=== PATIENT | female | born 1985 | race Caucasian/White ===

== ENCOUNTER 2016-05-11 10:54 | Emergency (ER) | payer OTHER ==
[2016-05-11 13:25] VITALS: BP 106/58
--- NOTE | 2016-05-11 13:44 | UC ---
Throat Pain/Nasal Olegario HPI - HPI Summary HPI Summary: complaint of sore throat for 3 days stomach feels upset slight nasal congestion fever for 2 days 103 highest temp taking ibuprofen and tylenol denies cough - History of Current Complaint Chief Complaint: UCGeneralIllness Stated Complaint: THROAT,EARS Time Seen by Provider: 05/11/16 13:20 Hx Obtained From: Patient Hx Last Menstrual Period: s/p ablation - Allergies/Home Medications Allergies/Adverse Reactions: Allergies Allergy/AdvReac Type Severity Reaction Status Date / Time Levofloxacin [From Levaquin] Allergy Severe throat Verified 05/11/16 13:19 swelling/hives/vomiting Erythromycin Allergy Intermediate vomiting/ra Verified 05/11/16 13:19 sh Onion Allergy Anaphylatic Verified 05/11/16 13:19 Shock Prochlorperazine Allergy Hives Verified 05/11/16 13:19 [From Compazine] Ketorolac Tromethamine AdvReac See Comment Verified 05/11/16 13:19 [From Toradol] Home Medications: Home Medications Albuterol HFA INHALER* [Ventolin HFA Inhaler*] 1 - 2 puff INH Q4H PRN 05/11/16 [ History Confirmed 05/11/16] Ibuprofen TAB* [Advil TAB*] 800 mg PO Q8H PRN 05/11/16 [History Confirmed ] Topiramate TAB(*) [Topamax 100 MG(*)] 100 mg PO BEDTIME 05/11/16 [History Confirmed 05/11/16] PMH/Surg Hx/FS Hx/Imm Hx Previously Healthy: Yes Endocrine History Of: Denies: Diabetes, Thyroid Disease, Hyperthyroidism, Hypothyroidism, Dyslipidemia Cardiovascular History Of: Denies: Cardiac Disorders, Hypertension, Pacemaker/ICD, Myocardial Infarction , Congestive Heart Failure, Atrial Fibrillation, Deep Vein Thrombosis, Bleeding Disorders Respiratory History Of: Reports: Asthma Denies: COPD, Bronchitis, Pneumonia, Pulmonary Embolism GI/ History Of: Denies: Gastroesophageal Reflux, Ulcer, Gastrointestinal Bleed, Gall Bladder Disease, Kidney Stones, Diverticulitis, Renal Disease, Urosepsis Neurological History Of: Reports: Migraine Denies: TIA, CVA, Dementia, Seizures Psychological History Of: Denies: Anxiety, Depression, Bipolar Disorder, Schizophrenia, Post Traumatic Stress Disorder Cancer History Of: Reports: Cervical Cancer - Treated for this 2013. She sees her GERIATRIC CASE MANAGER regularly. She had cone biopsy Denies: Lung Cancer, Colorectal Cancer, Breast Cancer, Prostate Cancer Other History Of: Negative For: HIV, Hepatitis B, Hepatitis C - Surgical History Surgical History: Yes Surgery Procedure, Year, and Place: Uterine Ablation, 2013; Tubal Ligation, 2013 ; , 2007 - Family History Known Family History: Positive: Cardiac Disease, Hypertension, Diabetes - Social History Occupation: Disabled Lives: With Family Alcohol Use: Rare Substance Use Type: None Smoking Status (MU): Former Smoker When Did the Patient Quit Smoking/Using Tobacco: 2012 - Immunization History Most Recent Influenza Vaccination: Not the Season Most Recent Tetanus Shot: 10/30/14 Review of Systems Constitutional: Fever Skin: Negative Eyes: Negative ENT: Sore Throat, Nasal Discharge Respiratory: Negative Cardiovascular: Negative Gastrointestinal: Negative Genitourinary: Negative Motor: Negative Neurovascular: Negative Musculoskeletal: Negative Neurological: Negative Psychological: Negative All Other Systems Reviewed And Are Negative: Yes Physical Exam Triage Information Reviewed: Yes Appearance: No Pain Distress, Well-Nourished Vital Signs: Initial Vital Signs Temp 98.2 F 05/11/16 13:15 Pulse 80 05/11/16 13:15 Resp 16 05/11/16 13:15 BP 106/58 05/11/16 13:15 Pulse Ox 100 05/11/16 13:15 Vital Signs Reviewed: Yes Eyes: Positive: Conjunctiva Clear ENT: Positive: Pharyngeal erythema, Nasal congestion, TMs normal, Tonsillar swelling. Negative: Tonsillar exudate Neck: Positive: No Lymphadenopathy Respiratory: Positive: Lungs clear, Normal breath sounds Cardiovascular: Positive: RRR, No Murmur, Pulses Normal Abdomen Description: Positive: Nontender, Soft Bowel Sounds: Positive: Present Musculoskeletal: Positive: No Edema Neurological: Positive: Alert Psychological Exam: Normal Skin Exam: Normal Throat Pain/Nasal Course/Dx - Differential Dx/Diagnosis Differential Diagnosis/HQI/PQRI: Pharyngitis, Tonsillitis Provider Diagnoses: viral pharyngitis Discharge - Discharge Plan Condition: Stable Disposition: HOME Patient Education Materials: Pharyngitis (ED) Referrals: GAYLA Correia [Primary Care Provider] - Additional Instructions: PHARYNGITIS (Sore Throat) What is Pharyngitis? The medical name for a sore throat is Pharyngitis. It is caused by an infection or irritation of your throat or tonsils. The infection can be caused by a virus or by bacteria. Not everyone with Pharyngitis needs antibiotics. Antibiotics will not make viral infections better, and they will not help a sore throat caused by irritation. Symptoms May Include: Sore throat Swelling of the glands in the neck Trouble or pain with swallowing Fever Headache Cough Extreme tiredness Ear pain Treatment Recommendations: Gargle every few hours with a solution of 1/4 teaspoon of salt dissolved in 1/ 2 cup of warm water. Drink plenty of warm beverages, like tea with lemon, (with or without honey) and soup. You may eat and drink cold foods and liquids like frozen yogurt, popsicles, and ice water if that makes your throat feel better. The goal is to keep you well hydrated. Use a "cool-mist" vaporizer or humidifier in the room where you spend most of your time. If you get a sore throat often, consider adding an electronic air filter and humidifier to your furnace system. Don't smoke. Do not eat spicy foods. Take medicine exactly as prescribed. If you do not think it is helping, call your healthcare provider. Do not increase how much or how often you take it without getting their OK first. Non-prescription anti-inflammatory medicine like ibuprofen (Motrin, Advil) or naproxen (Aleve) may help lessen the pain. You should not take these medicines if you have had bleeding in your stomach in the past. Acetaminophen ( Tylenol) is another choice of medicine that may help the pain. If pain medicine that makes you tired or sleepy or contains narcotics is prescribed, you should not drink, drive, or participate in any other activities that you need to be clear-headed for. Please keep all medicines out of the reach of children. Do not get in close contact with anyone you know who has a sore throat. Use throat lozenges (Cepostat, [place], etc.) or suck on hard candy for temporary relief of the pain with swallowing. (Do not give to children under age 5.) Call Your Doctor or Return Here IF: Your symptoms do not start to get better within 2 days or you become worse. You have a fever over 101.0 F orally. You cant swallow liquids or saliva. You are drooling. You start to have trouble breathing. You start to have a rash. You start to have a stiff neck. You start to have pain in your chest. You start to have any symptoms that are new or worry you.
== END 2016-05-11 14:07 | disposition home or self-care (01) ==
LOC: UCCORT 10:54
DX: J02.8 Acute pharyngitis due to other specified organisms (principal); B97.89 Other viral agents as the cause of diseases classified elsewhere; Z87.891 Personal history of nicotine dependence; Z88.1 Allergy status to other antibiotic agents; Z88.5 Allergy status to narcotic agent; Z88.8 Allergy status to other drugs, medicaments and biological substances; Z91.018 Allergy to other foods
CPT/HCPCS: 87651; 99211; G0463

== ENCOUNTER 2016-05-23 09:44 | Emergency (ER) | payer OTHER ==
[2016-05-23 11:19] VITALS: BP 107/68
--- NOTE | 2016-05-23 14:39 | UC ---
Throat Pain/Nasal Olegario HPI - HPI Summary HPI Summary: Patient arrives with son who is complaining of sore throat x1 day. Patient was tested positive for strep today. Wants to have an antibiotic d/t leaving for vacation today and is susceptible to getting strep infections while son has them as well as PMHx of Lupus. Also prefers to have yeast infection prophylaxis d/t secondary infection from antibiotic usage. Complains of slight sore throat - at a 4/10. Denies VUONG or fatigue. Denies fever. - History of Current Complaint Chief Complaint: UCRespiratory Stated Complaint: SORE THROAT Hx Obtained From: Patient Hx Last Menstrual Period: s/p ablation ?: No Severity: Mild Pain Intensity: 4 Pain Scale Used: 0-10 Numeric Cough: Nonproductive Associated Signs & Symptoms: Positive: Negative - Epiglottits Risk Factors Epiglottis Risk Factors: Negative - Allergies/Home Medications Allergies/Adverse Reactions: Allergies Allergy/AdvReac Type Severity Reaction Status Date / Time Levofloxacin [From Levaquin] Allergy Severe throat Verified 05/23/16 11:08 swelling/hives/vomiting Erythromycin Allergy Intermediate vomiting/ra Verified 05/23/16 11:08 sh Onion Allergy Anaphylatic Verified 05/23/16 11:08 Shock Prochlorperazine Allergy Hives Verified 05/23/16 11:08 [From Compazine] Ketorolac Tromethamine AdvReac See Comment Verified 05/23/16 11:08 [From Toradol] PMH/Surg Hx/FS Hx/Imm Hx Previously Healthy: Yes Endocrine History Of: Denies: Diabetes, Thyroid Disease, Hyperthyroidism, Hypothyroidism, Dyslipidemia Cardiovascular History Of: Denies: Cardiac Disorders, Hypertension, Pacemaker/ICD, Myocardial Infarction , Congestive Heart Failure, Atrial Fibrillation, Deep Vein Thrombosis, Bleeding Disorders Respiratory History Of: Reports: Asthma Denies: COPD, Bronchitis, Pneumonia, Pulmonary Embolism GI/ History Of: Denies: Gastroesophageal Reflux, Ulcer, Gastrointestinal Bleed, Gall Bladder Disease, Kidney Stones, Diverticulitis, Renal Disease, Urosepsis Neurological History Of: Reports: Migraine Denies: TIA, CVA, Dementia, Seizures Psychological History Of: Denies: Anxiety, Depression, Bipolar Disorder, Schizophrenia, Post Traumatic Stress Disorder Cancer History Of: Reports: Cervical Cancer - Treated for this 2013. She sees her SHOP LEAD regularly. She had cone biopsy Denies: Lung Cancer, Colorectal Cancer, Breast Cancer, Prostate Cancer Other History Of: Negative For: HIV, Hepatitis B, Hepatitis C - Surgical History Surgical History: Yes Surgery Procedure, Year, and Place: Uterine Ablation, 2013; Tubal Ligation, 2013 ; , 2007 - Family History Known Family History: Positive: Cardiac Disease, Hypertension, Diabetes - Social History Occupation: Employed Full-time Lives: With Family Alcohol Use: Rare Substance Use Type: None Smoking Status (MU): Former Smoker Have You Smoked in the Last Year: No When Did the Patient Quit Smoking/Using Tobacco: 2012 - Immunization History Most Recent Influenza Vaccination: Not the Season Most Recent Tetanus Shot: 10/30/14 Review of Systems Constitutional: Negative Skin: Negative ENT: Sore Throat Respiratory: Negative Cardiovascular: Negative Motor: Negative Neurovascular: Negative Musculoskeletal: Negative Neurological: Negative Psychological: Negative All Other Systems Reviewed And Are Negative: Yes Physical Exam Triage Information Reviewed: Yes Appearance: Well-Appearing, No Pain Distress, Well-Nourished Vital Signs: Initial Vital Signs Temp 97.7 F 05/23/16 11:04 Pulse 59 05/23/16 11:04 Resp 16 05/23/16 11:04 BP 107/68 05/23/16 11:04 Pulse Ox 98 05/23/16 11:04 Vital Signs Reviewed: Yes Eye Exam: Normal Eyes: Positive: Conjunctiva Clear ENT Exam: Normal ENT: Positive: Pharynx normal Dental Exam: Normal Neck exam: Normal Neck: Positive: Supple, No Lymphadenopathy Respiratory: Positive: Chest non-tender, Lungs clear Cardiovascular Exam: Normal Musculoskeletal Exam: Normal Musculoskeletal: Positive: Strength Intact, ROM Intact Neurological Exam: Normal Neurological: Positive: Alert, Muscle Tone Normal Psychological Exam: Normal Psychological: Positive: Normal Response To Family, Age Appropriate Behavior Skin Exam: Normal Throat Pain/Nasal Course/Dx - Course Course Of Treatment: Patient refuses POCT rapid strep. Prefers to be treated with ABX d/t contact with strep and recent sore throat. Patient prescribed amoxicillin and prophylactic yeast medication diflucan. Will follow up with PCP. - Differential Dx/Diagnosis Differential Diagnosis/HQI/PQRI: Influenza, Pharyngitis, Tonsillitis, URI Provider Diagnoses: Sore throat Discharge - Discharge Plan Condition: Stable Disposition: HOME Prescriptions: Amoxicillin CAP* 500 mg PO BID #20 cap MDD 2 Fluconazole [Diflucan 150 MG (NF)] 150 mg PO ONCE #1 tab Referrals: GAYLA Correia [Primary Care Provider] - Additional Instructions: Dx: Strep Throat You will need antibiotic medicine to treat your strep throat. Please take the antibiotic as directed. You should feel better within 2 to 3 days after you start antibiotics. You may return to work or school 24 hours after you start antibiotics. If you have any questions about your medications, please do no hesitate to call or talk with your pharmacist. How can I manage my symptoms? Use lozenges, ice, soft foods, or popsicles to soothe your throat. Drink juice, milk shakes, or soup if your throat is too sore to eat solid food. Drinking liquids can also help prevent dehydration. Gargle with salt water. Mix teaspoon salt in a 1 cup of warm water and gargle. This may help reduce swelling in your throat. Do not smoke. Nicotine and other chemicals in cigarettes and cigars can cause lung damage and make your symptoms worse. Ask your healthcare provider for information if you currently smoke and need help to quit. E-cigarettes or smokeless tobacco still contain nicotine. Talk to your healthcare provider before you use these products. How do I prevent the spread of strep throat? Wash your hands often. Use soap and water. Wash your hands after you use the bathroom, change a child's diapers, or sneeze. Wash your hands before you prepare or eat food. Do not share food or drinks. Replace your toothbrush after you have taken antibiotics for 24 hours. Medication: Augmentin 875-mg tablet of AUGMENTIN every 12 hours or 10 days. To minimize the potential for gastrointestinal intolerance, AUGMENTIN should be taken at the start of a meal. If you have any questions about your medication, please contact us or ask your pharmacist
== END 2016-05-23 11:43 | disposition home or self-care (01) ==
LOC: UCCORT 09:44
DX: J02.9 Acute pharyngitis, unspecified (principal); Z88.1 Allergy status to other antibiotic agents; Z88.5 Allergy status to narcotic agent; Z87.891 Personal history of nicotine dependence
CPT/HCPCS: 99212; G0463

== ENCOUNTER 2016-10-19 15:30 | Emergency (ER) | payer OTHER ==
--- NOTE | 2016-10-19 15:33 | UC ---
Skin Complaint HPI - HPI Summary HPI Summary: 30 year old female presents with complains of a tick bite to her left ear. She is concerned about lyme disease. - History of Current Complaint Time Seen by Provider: 10/19/16 15:30 Stated Complaint: TICK BITE Hx Last Menstrual Period: s/p ablation - Allergy/Home Medications Allergies/Adverse Reactions: Allergies Allergy/AdvReac Type Severity Reaction Status Date / Time Levofloxacin [From Levaquin] Allergy Severe throat Verified 10/19/16 16:14 swelling/hives/vomiting Erythromycin Allergy Intermediate vomiting/ra Verified 10/19/16 16:14 sh Onion Allergy Anaphylatic Verified 10/19/16 16:14 Shock Prochlorperazine Allergy Hives Verified 10/19/16 16:14 [From Compazine] Sumatriptan [From Imitrex] Allergy Palpitation Verified 10/19/16 16:18 s Ketorolac Tromethamine AdvReac See Comment Verified 10/19/16 16:14 [From Toradol] Home Medications: Home Medications Hydrocodone-Acetaminophen [Hydrocodone/Acetaminophen 5-325 mg] 1 tab PO Q4HR PRN 10/19/16 [History Confirmed 10/19/16] Review of Systems Constitutional: Negative Skin: Rash - right ear Eyes: Negative ENT: Negative Respiratory: Negative Cardiovascular: Negative Gastrointestinal: Negative Genitourinary: Negative Motor: Negative Neurovascular: Negative Musculoskeletal: Negative Neurological: Negative Psychological: Negative All Other Systems Reviewed And Are Negative: Yes PMH/Surg Hx/FS Hx/Imm Hx Other History Of: Negative For: HIV, Hepatitis B, Hepatitis C - Surgical History Surgical History: Yes Surgery Procedure, Year, and Place: Uterine Ablation, 2013; Tubal Ligation, 2013 ; , 2007 - Family History Known Family History: Positive: Cardiac Disease, Hypertension, Diabetes - Social History Alcohol Use: Rare Substance Use Type: None Smoking Status (MU): Former Smoker Have You Smoked in the Last Year: No When Did the Patient Quit Smoking/Using Tobacco: 2012 - Immunization History Most Recent Influenza Vaccination: Not the 2016/2016 Season Most Recent Tetanus Shot: 10/30/14 Physical Exam Triage Information Reviewed: Yes Eye Exam: Normal ENT Exam: Normal Dental Exam: Normal Neck exam: Normal Neck: Positive: 1 Respiratory Exam: Normal Cardiovascular Exam: Normal Abdominal Exam: Normal Musculoskeletal Exam: Normal Neurological Exam: Normal Psychological Exam: Normal Skin: Positive: rashes Course/Dx - Diagnoses Provider Diagnoses: tick bite. rash Discharge - Discharge Plan Condition: Stable Disposition: HOME Prescriptions: DOXYcycline CAP(*) [DOXYcycline 100MG CAP(*)] 100 mg PO BID #56 cap Fluconazole 150 MG (NF) [Diflucan 150 mg (NF)] 150 mg PO ONCE #2 tab Patient Education Materials: Lyme Disease (ED), Tick Bite (ED) Referrals: GAYLA Correia [Primary Care Provider] - If Needed
[2016-10-19 16:14] VITALS: BP 114/67
== END 2016-10-19 16:47 | disposition home or self-care (01) ==
LOC: UCCORT 15:30
DX: S00.462A Insect bite (nonvenomous) of left ear, initial encounter (principal); W57.XXXA Bitten or stung by nonvenomous insect and other nonvenomous arthropods, initial encounter; Y92.9 Unspecified place or not applicable; Z87.891 Personal history of nicotine dependence; R21 Rash and other nonspecific skin eruption
CPT/HCPCS: 86618; 99211; G0463

== ENCOUNTER 2016-12-25 10:52 | Emergency (ER) | payer OTHER ==
--- NOTE | 2016-12-25 12:47 | ED ---
Throat Pain/Nasal Congestion - HPI Summary HPI Summary: 31 yr old female with the complaint of sore throat, coughing, runny nose, post nasal drip. Onset over a week ago. She states that she has chronic sinus issues and that she is having more post nasal drip than usual. She is scheduled for tonsillectomy and sinus surgery next week by ENT per the patient. She is not having trouble breathing. she is not having trouble swallowing. She rates her symptoms as moderate. She has had fever on and off this week. She is taking advil cold and sinus. - History of Current Complaint Chief Complaint: UCRespiratory Time Seen by Provider: 12/25/16 12:18 - Allergies/Home Medications Allergies/Adverse Reactions: Allergies Allergy/AdvReac Type Severity Reaction Status Date / Time Levofloxacin [From Levaquin] Allergy Severe throat Verified 12/25/16 11:34 swelling/hives/vomiting Erythromycin Allergy Intermediate vomiting/ra Verified 12/25/16 11:34 sh Onion Allergy Anaphylatic Verified 12/25/16 11:34 Shock Prochlorperazine Allergy Hives Verified 12/25/16 11:34 [From Compazine] Sumatriptan [From Imitrex] Allergy Palpitation Verified 12/25/16 11:34 s Ketorolac Tromethamine AdvReac See Comment Verified 12/25/16 11:34 [From Toradol] Home Medications: Home Medications Pseudoephedrine-Ibuprofen [Advil Cold & Sinus] 2 cap PO Q4H PRN 12/25/16 [ History Confirmed 12/25/16] PMH/Surg Hx/FS Hx/Imm Hx Previously Healthy: Yes Endocrine/Hematology History: Denies: Hx Diabetes, Hx Thyroid Disease Cardiovascular History: Denies: Hx Congestive Heart Failure, Hx Deep Vein Thrombosis, Hx Hypertension , Hx Myocardial Infarction, Hx Pacemaker/ICD Respiratory History: Reports: Hx Asthma Denies: Hx Chronic Obstructive Pulmonary Disease (COPD), Hx Lung Cancer, Hx Pneumonia, Hx Pulmonary Embolism GI History: Denies: Hx Gall Bladder Disease, Hx Gastrointestinal Bleed, Hx Ulcer, Hx Urosepsis History: Denies: Hx Kidney Stones, Hx Renal Disease Neurological History: Reports: Hx Migraine Denies: Hx Dementia, Hx Seizures, Hx Transient Ischemic Attacks (TIA) Psychiatric History: Denies: Hx Anxiety, Hx Depression, Hx Schizophrenia, Hx Bipolar Disorder - Cancer History Cancer Type, Location and Year: CERVICAL CANCER - Surgical History Surgery Procedure, Year, and Place: Uterine Ablation, 2013; Tubal Ligation, 2013 ; , 2007. sinus Infectious Disease History: No Infectious Disease History: Denies: Traveled Outside the [place] in Last 30 Days - Family History Known Family History: Positive: Cardiac Disease, Hypertension, Diabetes - Social History Alcohol Use: Rare Substance Use Type: Reports: None Smoking Status (MU): Former Smoker Have You Smoked in the Last Year: No Review of Systems Positive: Sore Throat, Nasal Discharge Positive: Cough. Negative: Shortness Of Breath All Other Systems Reviewed And Are Negative: Yes Physical Exam Triage Information Reviewed: Yes Vital Signs On Initial Exam: Initial Vitals Temp Pulse Resp BP Pulse Ox 99 F 100 16 99/71 100 12/25/16 11:37 12/25/16 11:37 12/25/16 11:37 12/25/16 11:37 12/25/16 11:37 Vital Signs Reviewed: Yes Appearance: Positive: Well-Appearing Skin: Positive: Warm Head/Face: Positive: Normal Head/Face Inspection Eyes: Positive: EOMI, ZACH ENT: Positive: Pharyngeal erythema, TMs normal, Other - bilateral sinus tenderness. Negative: Nasal congestion, Nasal drainage Neck: Positive: Supple, Nontender Respiratory/Lung Sounds: Negative: Stridor, Tracheal Deviation Cardiovascular: Positive: RRR. Negative: Murmur Abdomen Description: Positive: Nontender Musculoskeletal: Positive: Strength/ROM Intact Neurological: Positive: Sensory/Motor Intact, Alert, Oriented to Person Place, Time, CN Intact II-III - Shayy Coma Scale Best Eye Response: 4 - Spontaneous Best Motor Response: 6 - Obeys Commands Best Verbal Response: 5 - Oriented Diagnostics - Vital Signs Vital Signs Temp Pulse Resp BP Pulse Ox 12/25/16 11:37 99 F 100 16 99/71 100 - Laboratory Lab Statement: Any lab studies that have been ordered have been reviewed, and results considered in the medical decision making process. EENT Course/Dx - Course Course Of Treatment: 31 yr old with negative strep screen on throat, but sinusitis symptoms. Will Rx with Augmentin. FU with her ENT. - Diagnoses Provider Diagnoses: Sinusitis Discharge - Discharge Plan Condition: Good Disposition: HOME Prescriptions: Amoxicillin/Clavulanate TAB* [Augmentin TAB 875*] 875 mg PO BID #20 tab Patient Education Materials: Sinusitis (ED) Referrals: GAYLA Correia [Primary Care Provider] -
[2016-12-25 13:08] VITALS: BP 93/76
== END 2016-12-25 13:13 | disposition home or self-care (01) ==
LOC: UCCORT 10:52
DX: J32.9 Chronic sinusitis, unspecified (principal); Z87.891 Personal history of nicotine dependence; J45.909 Unspecified asthma, uncomplicated; Z85.41 Personal history of malignant neoplasm of cervix uteri
CPT/HCPCS: 87651; 99212; G0463

== ENCOUNTER 2017-02-22 15:13 | Emergency (ER) | payer OTHER ==
[2017-02-22 15:52] VITALS: BP 113/82
--- NOTE | 2017-02-22 16:04 | UC ---
Throat Pain/Nasal Olegario HPI - HPI Summary HPI Summary: 31F presents with sore throat for couple days. Says on developed a fever and then nausea and vomiting which has resolved. Then developed sore throat. Has had sinus congestion and cough intermittent for past couple months. took Tylenol for fever. no sob or chest pain. no abdominal pain. no ear pain. has PMH of lupus. is suppose to have tonsil surgery shortly. Her son has similar symptoms. - History of Current Complaint Chief Complaint: UCGeneralIllness Stated Complaint: ST,RUNNY NOSE Time Seen by Provider: 02/22/17 15:34 Hx Last Menstrual Period: unknown - Allergies/Home Medications Allergies/Adverse Reactions: Allergies Allergy/AdvReac Type Severity Reaction Status Date / Time Levofloxacin [From Levaquin] Allergy Severe throat Verified 02/22/17 15:52 swelling/hives/vomiting Erythromycin Allergy Intermediate vomiting/ra Verified 02/22/17 15:52 sh Onion Allergy Anaphylatic Verified 02/22/17 15:52 Shock Prochlorperazine Allergy Hives Verified 02/22/17 15:52 [From Compazine] Sumatriptan [From Imitrex] Allergy Palpitation Verified 02/22/17 15:52 s Ketorolac Tromethamine AdvReac See Comment Verified 02/22/17 15:52 [From Toradol] Home Medications: Home Medications HYDROcodo/Acetam5/325MG PREPAK [HYDROcodone/ACETAMIN 5-325 MG*] 1 tab PO ONCE PRN 02/22/17 [History Confirmed 02/22/17] PMH/Surg Hx/FS Hx/Imm Hx Endocrine History: Other Other Endocrine History: lupus Cardiovascular History: Other Other Cardiovascular History: no CAD Other History Of: Negative For: HIV, Hepatitis B, Hepatitis C - Surgical History Surgical History: Yes Surgery Procedure, Year, and Place: Uterine Ablation, 2013; Tubal Ligation, 2013 ; , 2007. sinus - Family History Known Family History: Positive: Cardiac Disease, Hypertension, Diabetes - Social History Alcohol Use: Rare Substance Use Type: None Smoking Status (MU): Former Smoker Have You Smoked in the Last Year: No When Did the Patient Quit Smoking/Using Tobacco: 2012 - Immunization History Most Recent Influenza Vaccination: Not the 2015/2016 Season Most Recent Tetanus Shot: 10/30/14 Review of Systems Constitutional: Fever ENT: Sore Throat, Nasal Discharge Respiratory: Cough Is Patient Immunocompromised?: Yes - lupus All Other Systems Reviewed And Are Negative: Yes Physical Exam Triage Information Reviewed: Yes Appearance: Well-Appearing Vital Signs: Initial Vital Signs Temp 99.3 F 02/22/17 15:41 Pulse 92 02/22/17 15:41 Resp 14 02/22/17 15:41 BP 113/82 02/22/17 15:41 Pulse Ox 100 02/22/17 15:41 Vital Signs Reviewed: Yes Eyes: Positive: Conjunctiva Clear ENT: Positive: Pharyngeal erythema, TMs normal, Uvula midline, Other - soft palate symmetric. Negative: Tonsillar swelling, Tonsillar exudate, Trismus, Muffled voice, Hoarse voice, Sinus tenderness Neck: Positive: Supple, Nontender, No Lymphadenopathy Respiratory: Positive: Lungs clear, Normal breath sounds Cardiovascular: Positive: RRR Abdomen Description: Positive: Nontender, Soft Bowel Sounds: Positive: Present Musculoskeletal Exam: Normal Neurological Exam: Normal Psychological Exam: Normal Throat Pain/Nasal Course/Dx - Course Course Of Treatment: 31F presents with sore throat for couple days. Says on developed a fever and then nausea and vomiting which has resolved. Then developed sore throat. Has had sinus congestion and cough intermittent for past couple months. took tyenlol for fever. no sob or chest pain. no abdominal pain. no ear pain. has PMH of lupus. is suppose to have tonsil surgery shortly. on exam has pharynx erythema, uvula midline, soft palate symmetric. strept neg. will send for culture. will treat with magic mouth wash. medications reviewed. patient understand and agrees with plan. - Differential Dx/Diagnosis Differential Diagnosis/HQI/PQRI: Peritonsillar Abscess, Pharyngitis, Tonsillitis , URI Provider Diagnoses: pharyngitis Discharge - Discharge Plan Condition: Good Disposition: HOME Prescriptions: Magic Mouth Was-STEPH/MAAL/LIDO* 5 ml SWISH SPIT QID #100 ml Patient Education Materials: Pharyngitis (ED) Referrals: GAYLA Correia [Primary Care Provider] - Additional Instructions: Magic mouthwash 5ml swish and spit can use 4x a day Take Tylenol or ibuprofen for pain every 6 hours Use saline spray in nose as much as needed for sinus congestion Use humidifier in room or can use warm water in bowls for cough Can use cough drops or products such as cloraseptic spray Try zytrec once a day for sinus congestion Follow up with primary within 7 days Return to ED if develop any new or worsening symptoms
== END 2017-02-22 16:33 | disposition home or self-care (01) ==
LOC: UCCORT 15:13
DX: J02.9 Acute pharyngitis, unspecified (principal); M32.9 Systemic lupus erythematosus, unspecified; Z87.891 Personal history of nicotine dependence; Z88.1 Allergy status to other antibiotic agents; Z88.8 Allergy status to other drugs, medicaments and biological substances; Z88.6 Allergy status to analgesic agent
CPT/HCPCS: 87070; 87651; 99212; G0463

== ENCOUNTER 2017-12-21 08:34 | Emergency (ER) | payer OTHER ==
[2017-12-21 09:10] VITALS: BP 113/72
--- NOTE | 2017-12-21 09:43 | UC ---
UC General HPI - HPI Summary HPI Summary: 32 yo female c/o last 2 weeks of progressive sinus congestion, cough. Some blood tinged sputum. + nausea. Feels lymph nodes swollen. No rash. + fatigue. - History of Current Complaint Chief Complaint: UCRespiratory Stated Complaint: SORE THROAT,FEVER Time Seen by Provider: 12/21/17 09:18 Hx Obtained From: Patient Hx Last Menstrual Period: hx of uterine ablation & tubal Pain Intensity: 7 - Allergy/Home Medications Allergies/Adverse Reactions: Allergies Allergy/AdvReac Type Severity Reaction Status Date / Time erythromycin base Allergy Hives Verified 12/21/17 08:58 ketorolac Allergy Hives Verified 12/21/17 08:58 levofloxacin Allergy Hives/Diff. Verified 12/21/17 08:58 Breathing/I tching onion Allergy Anaphylatic Verified 12/21/17 08:58 Shock prochlorperazine Allergy Hives Verified 12/21/17 08:58 sumatriptan [From Imitrex] Allergy Palpitation Verified 12/21/17 08:58 s PMH/Surg Hx/FS Hx/Imm Hx Previously Healthy: No - lupus Other History Of: Negative For: HIV, Hepatitis B, Hepatitis C - Surgical History Surgical History: Yes Surgery Procedure, Year, and Place: Uterine Ablation, 2013; Tubal Ligation, 2013 ; , 2007. Sinus surgery - Family History Known Family History: Positive: Cardiac Disease, Hypertension, Diabetes - Social History Alcohol Use: None Substance Use Type: None Smoking Status (MU): Former Smoker Have You Smoked in the Last Year: No When Did the Patient Quit Smoking/Using Tobacco: 2012 - Immunization History Most Recent Influenza Vaccination: Not the 2015/2016 Season Most Recent Tetanus Shot: 10/30/14 Review of Systems Constitutional: Fatigue Skin: Negative Eyes: Negative ENT: Sore Throat, Ear Ache, Nasal Discharge, Sinus Congestion Respiratory: Cough Cardiovascular: Negative Gastrointestinal: Negative Genitourinary: Negative Motor: Negative Neurovascular: Negative Musculoskeletal: Negative Neurological: Negative Psychological: Negative Is Patient Immunocompromised?: No All Other Systems Reviewed And Are Negative: Yes Physical Exam Triage Information Reviewed: Yes Appearance: Well-Nourished - looks tired, but nad. nontoxic appearance. Vital Signs: Initial Vital Signs Temp 98.4 F 12/21/17 08:59 Pulse 78 12/21/17 08:59 Resp 16 12/21/17 08:59 BP 113/72 12/21/17 08:59 Pulse Ox 100 12/21/17 08:59 Vital Signs Reviewed: Yes Eye Exam: Normal ENT: Positive: TM dull, Other - mild post pharynx redness, uvula midline, no sores or exudates appreciated Neck exam: Other - + right lymph node swollen no meningismus Respiratory: Positive: Chest non-tender, No respiratory distress, No accessory muscle use, Wheezing - mild bilat exp wheeze Cardiovascular Exam: Normal Cardiovascular: Positive: RRR Abdominal Exam: Normal - + bs, slight inc active Abdomen Description: Positive: Nontender Musculoskeletal Exam: Normal - gait steady, moves x 4 ext's Neurological Exam: Normal - grossly nonfocal, detailed not done Psychological Exam: Normal - conversing easily and appropriately Course/Dx - Course Course Of Treatment: No new problems in CCC. Strep throat test neg. Reviewed coa / tx plan with pt. Questions as posed answered to the best of my ability. - Differential Dx - Multi-Symptom Provider Diagnoses: Sinusitis, bronchitis with wheezing. sore throat Discharge - Sign-Out/Discharge Documenting (check all that apply): Patient Departure All imaging exams completed and their final reports reviewed: No Studies - Discharge Plan Condition: Stable Disposition: HOME Prescriptions: Albuterol HFA INHALER* [Ventolin HFA Inhaler*] 1 - 2 puff INH Q4H PRN #1 mdi PRN Reason: Wheezing Amoxicillin/Clavulanate TAB* [Augmentin TAB 875*] 875 mg PO BID #20 tab Fluconazole [Diflucan 150 MG (NF)] 150 mg PO DAILY #2 tab Ondansetron ODT TAB* [Zofran 4 MG Odt TAB*] 4 mg PO Q6H PRN #12 tab.odt PRN Reason: Nausea Patient Education Materials: Pharyngitis (ED), Sinusitis (ED) Forms: *Work Release Referrals: Justus Harrison MD [Primary Care Provider] - Additional Instructions: Follow up with primary care physician, per routine. Seek medical attention for worse or new problems in the meantime. - Billing Disposition and Condition Condition: STABLE Disposition: Home
== END 2017-12-21 10:09 | disposition home or self-care (01) ==
LOC: UCCORT 08:34
DX: J32.9 Chronic sinusitis, unspecified (principal); J40 Bronchitis, not specified as acute or chronic; R06.2 Wheezing; J02.9 Acute pharyngitis, unspecified; Z88.6 Allergy status to analgesic agent; Z88.1 Allergy status to other antibiotic agents; Z88.8 Allergy status to other drugs, medicaments and biological substances; Z87.891 Personal history of nicotine dependence
CPT/HCPCS: 87651; 99212; G0463

== ENCOUNTER 2018-12-07 14:37 | Emergency (ER) | payer OTHER ==
[2018-12-07 15:23] VITALS: BP 134/72
--- NOTE | 2018-12-07 15:30 | UC ---
UC General HPI - HPI Summary HPI Summary: pt is c/o nausea, fatigue and vomiting since yesterday. she has been able to keep some bland fluids down this afternoon. she states that this is not her migraine. she has had no diarrhea but has had some lower abdominal cramping. she denies any abdominal pain. she reports having had a tubal but wants to exclude . no fever or chills. she has zofran for her migraines but has only 2 left. she didn't want to run out in case she gets a migraine so she didn't take any. - History of Current Complaint Chief Complaint: UCGI Stated Complaint: VOMITING Time Seen by Provider: 12/07/18 15:21 Hx Obtained From: Patient Hx Last Menstrual Period: tubal Pain Intensity: 0 Associated Signs & Symptoms: Negative: Abdominal Pain, Diarrhea - Allergy/Home Medications Allergies/Adverse Reactions: Allergies Allergy/AdvReac Type Severity Reaction Status Date / Time erythromycin base Allergy Hives Verified 12/07/18 15:18 ketorolac Allergy Hives Verified 12/07/18 15:18 levofloxacin Allergy Hives/Diff. Verified 12/07/18 15:18 Breathing/I tching onion Allergy Anaphylatic Verified 12/07/18 15:18 Shock prochlorperazine Allergy Hives Verified 12/07/18 15:18 sumatriptan [From Imitrex] Allergy Palpitation Verified 12/07/18 15:18 s PMH/Surg Hx/FS Hx/Imm Hx - Additional Past Medical History Additional PMH: Lupus Neurological History: Migraine Other History Of: Negative For: HIV, Hepatitis B, Hepatitis C - Surgical History Surgical History: Yes Surgery Procedure, Year, and Place: Uterine Ablation, 2013; Tubal Ligation, 2013 ; , 2007. Sinus surgery - Family History Known Family History: Positive: Cardiac Disease, Hypertension, Diabetes - Social History Lives: With Family Alcohol Use: None Substance Use Type: None Smoking Status (MU): Former Smoker Have You Smoked in the Last Year: No When Did the Patient Quit Smoking/Using Tobacco: 2012 - Immunization History Most Recent Influenza Vaccination: Not the 2016/2016 Season Most Recent Tetanus Shot: 10/30/14 Review of Systems All Other Systems Reviewed And Are Negative: Yes Constitutional: Negative: Fever, Chills ENT: Negative: Sore Throat, Ear Ache, Sinus Congestion Respiratory: Negative: Shortness Of Breath, Cough Cardiovascular: Negative: Palpitations, Chest Pain Gastrointestinal: Positive: Vomiting, Nausea. Negative: Abdominal Pain, Diarrhea Genitourinary: Negative: Dysuria, Abnormal Bleeding Physical Exam Triage Information Reviewed: Yes Appearance: Well-Appearing Vital Signs: Initial Vital Signs Temp 98.8 F 12/07/18 15:19 Pulse 91 12/07/18 15:19 Resp 18 12/07/18 15:19 BP 134/72 12/07/18 15:19 Pulse Ox 100 12/07/18 15:19 Vital Signs Reviewed: Yes Eyes: Positive: Conjunctiva Clear ENT: Positive: Normal ENT inspection Neck: Positive: Supple, Nontender, No Lymphadenopathy Respiratory: Positive: Lungs clear, Normal breath sounds Cardiovascular: Positive: RRR, No Murmur Abdomen Description: Positive: Nontender, No Organomegaly, Soft Bowel Sounds: Positive: Present Musculoskeletal: Positive: ROM Intact Neurological: Positive: Alert Psychological: Positive: Age Appropriate Behavior Skin Exam: Normal Diagnostics - Laboratory Lab Results: u/a=unremarkable. urine hcg=neg Course/Dx - Differential Dx - Multi-Symptom Differential Diagnoses: Other - non toxic. no acute abdomen. u/a=unremarkable. urine hcg=neg. will write for some zofran. pt advised to f/u with her pcp for a recheck. she agrees to go to the ER for any worsening. - Diagnoses Provider Diagnosis: Nausea & vomiting Discharge ED - Sign-Out/Discharge Documenting (check all that apply): Patient Departure All imaging exams completed and their final reports reviewed: No Studies - Discharge Plan Condition: Stable Disposition: HOME Prescriptions: Ondansetron ODT TAB* [Zofran 4 MG Odt TAB*] 4 mg PO Q6H PRN #15 tab.odt MDD 4 PRN Reason: Nausea Patient Education Materials: Acute Nausea and Vomiting (ED) Referrals: Alexander Castaneda [Primary Care Provider] - 5 Days Additional Instructions: GO TO THE ER FOR ANY WORSENING - Billing Disposition and Condition Condition: STABLE Disposition: Home - Attestation Statements Provider Attestation: This patient was not seen by me. I was available for consult.
== END 2018-12-07 15:57 | disposition home or self-care (01) ==
LOC: UCCORT 14:37
DX: R11.2 Nausea with vomiting, unspecified (principal); M32.9 Systemic lupus erythematosus, unspecified; Z87.891 Personal history of nicotine dependence
CPT/HCPCS: 81003; 99212; G0463

== ENCOUNTER 2018-12-25 07:48 | Emergency (ER) | payer OTHER ==
[2018-12-25 08:11] VITALS: BP 106/69
--- NOTE | 2018-12-25 08:45 | UC ---
Lower Extremity/Ankle HPI - HPI Summary HPI Summary: 33-year-old woman comes in with chief complaint of left ankle and foot pain. Yesterday she was hiking and she rolled her left ankle. She's having a hard time putting any weight on it. It's more painful when she bears weight is less painful when she does not. There is swelling laterally. - History of Current Complaint Chief Complaint: UCLowerExtremity Stated Complaint: LEFT ANKLE INJURY Time Seen by Provider: 12/25/18 08:14 Hx Last Menstrual Period: unknown Pain Intensity: 7 - Allergies/Home Medications Allergies/Adverse Reactions: Allergies Allergy/AdvReac Type Severity Reaction Status Date / Time erythromycin base Allergy Hives Verified 12/25/18 08:07 ketorolac Allergy Hives Verified 12/25/18 08:07 levofloxacin Allergy Hives/Diff. Verified 12/25/18 08:07 Breathing/I tching onion Allergy Anaphylatic Verified 12/25/18 08:07 Shock prochlorperazine Allergy Hives Verified 12/25/18 08:07 sumatriptan [From Imitrex] Allergy Palpitation Verified 12/25/18 08:07 s Home Medications: Home Medications Ibuprofen TAB* [Advil TAB*] 600 mg PO Q6H PRN 12/25/18 [History Confirmed ] PMH/Surg Hx/FS Hx/Imm Hx Previously Healthy: Yes Other History Of: Negative For: HIV, Hepatitis B, Hepatitis C - Surgical History Surgical History: Yes Surgery Procedure, Year, and Place: Uterine Ablation, 2013; Tubal Ligation, 2013 ; , 2007. Sinus surgery - Family History Known Family History: Positive: Cardiac Disease, Hypertension, Diabetes - Social History Alcohol Use: None Substance Use Type: None Smoking Status (MU): Former Smoker Have You Smoked in the Last Year: No When Did the Patient Quit Smoking/Using Tobacco: 2012 - Immunization History Most Recent Influenza Vaccination: Not the 2016/2017 Season Most Recent Tetanus Shot: 10/30/14 Review of Systems All Other Systems Reviewed And Are Negative: Yes Constitutional: Positive: Negative Skin: Positive: Bruising - lt foot Eyes: Positive: Negative ENT: Positive: Negative Respiratory: Positive: Negative Cardiovascular: Positive: Negative Gastrointestinal: Positive: Negative Motor: Positive: Other - see hpi Neurovascular: Positive: Negative Musculoskeletal: Positive: Other: - see hpi Neurological: Positive: Negative Psychological: Positive: Negative Is Patient Immunocompromised?: No Physical Exam Triage Information Reviewed: Yes Appearance: Well-Appearing, No Pain Distress, Well-Nourished Vital Signs: Initial Vital Signs Temp 98.4 F 12/25/18 08:08 Pulse 82 12/25/18 08:08 Resp 15 12/25/18 08:08 BP 106/69 12/25/18 08:08 Pulse Ox 100 12/25/18 08:08 Vital Signs Reviewed: Yes Eye Exam: Normal Eyes: Positive: Conjunctiva Clear Neck: Positive: Supple Respiratory: Positive: No respiratory distress Musculoskeletal: Positive: Other: - There is swelling and tenderness in the left lateral ankle and midfoot. Normal sensation normal capillary refill and dorsalis pedis pulse distally. No skin break. Achilles tendon is nontender and intact. Neurological: Positive: Alert Psychological: Positive: Age Appropriate Behavior Skin: Positive: Other - Ecchymosis left midfoot and swelling Lower Extremity Course/Dx - Course Course Of Treatment: Area Secretary: Alejandro Hassan ([id number]) Gliding Pilot Instructor: NABIL (NABIL) Report Date: 12/25/2018 08:01:00 Report Status: Final Start of Report Content Patient Name: KSENIA NELSON Medical Record#: [id number] Ordering Physician: Александр Felder MD Acct.#: [id number] : Age: 33 Sex: F Location: [facility] Exam Date: 12/25/18800 ADM Status: [facility] ER Order Information: FOOT LEFT 3+ VWS Accession Number: [id number] CPT: 79312 INDICATION: Left foot injury. TECHNIQUE: 3 views of the left foot were obtained. FINDINGS: There is lateral soft tissue swelling. The bone mineralization is within normal limits. Ossific fragments minimally displaced from the lateral cuboid and calcaneus measure 5 and 4 mm respectively. Anatomic alignment is maintained. The joint spaces are preserved. IMPRESSION: PROBABLE SMALL AVULSION FRACTURE FRAGMENTS MINIMALLY DISPLACED FROM THE LATERAL ASPECTS OF THE CUBOID AND CALCANEUS. <Electronically signed by Alejandro Hassan MD in OV> 12/25/18943 Dictated By: Alejandro Hassan MD Dictated Date/Time: 12/25/18940 Transcribed Date/Time: 12/25/18940 Copy to: CC:Justus Harrison MD; Александр Felder MD Imaging - [facility] Urgent [facility] [address] [address] ph [phone]) ph ) ([phone]) End of Report Content Area Secretary: Alejandro Hassan, ([id number]) Gliding Pilot Instructor: NABIL (NUANCE) Report Date: 12/25/2018 08:01:00 Report Status: Final Start of Report Content Patient Name: KSENIA NELSON Medical Record#: [id number] Ordering Physician: Александр Felder MD Acct.#: [id number] : Age: 33 Sex: F [facility] Exam Date: 12/25/18800 ADM Status: DEP ER Order Information: ANKLE LEFT 3+VWS Accession Number: [id number] CPT: 09731 INDICATION: Left ankle injury. TECHNIQUE: 3 views of the left ankle were obtained. FINDINGS: The soft tissues are unremarkable. The bone mineralization is within normal limits. No fracture is identified. Anatomic alignment is maintained. The joint spaces are preserved. IMPRESSION: NO EVIDENCE FOR FRACTURE. ___ <Electronically signed by Alejandro Hassan MD in OV> 12/25/18940 Dictated By: Alejandro Hassan MD Dictated Date/Time: 12/25/18940 Transcribed Date/Time: 940 Copy to: CC:Justus Harrison MD; Александр Felder MD Imaging - [facility] Imaging [facility] [address] [place] [address] ph ([phone]) ph ([phone]) ph ([phone]) ===== End of Report Content I discussed the x-rays with the patient. With a fracture in the midfoot patient was placed and a walking boot and given crutches with the plan of minimizing weightbearing and following up with orthopedics. Patient works in [place] and may follow-up in [place] with orthopedics. Also given the [facility] orthopedics referral. - Differential Dx/Diagnosis Provider Diagnosis: Fracture of foot bone, left, closed Discharge ED - Sign-Out/Discharge Documenting (check all that apply): Patient Departure All imaging exams completed and their final reports reviewed: Yes - Discharge Plan Condition: Stable Disposition: HOME Patient Education Materials: Crutch Instructions (ED), Foot Fracture in Adults (ED) Referrals: Justus Harrison MD [Primary Care Provider] - Dianna Velarde MD [Medical Doctor] - Additional Instructions: FOLLOW UP WITH ORTHOPEDICS. GET REEVALUATED SOONER IF WORSE OR ANY QUESTIONS OR CONCERNS. - Billing Disposition and Condition Condition: STABLE Disposition: Home
== END 2018-12-25 09:06 | disposition home or self-care (01) ==
LOC: UCCORT 07:48
DX: S92.212A Displaced fracture of cuboid bone of left foot, initial encounter for closed fracture (principal); S92.002A Unspecified fracture of left calcaneus, initial encounter for closed fracture; X50.0XXA Overexertion from strenuous movement or load, initial encounter; Y93.01 Activity, walking, marching and hiking; Y92.9 Unspecified place or not applicable; Z87.891 Personal history of nicotine dependence
CPT/HCPCS: 99213; G0463

== ENCOUNTER 2019-04-10 09:15 | Emergency (ER) | payer OTHER ==
[2019-04-10 09:44] VITALS: BP 102/66
--- NOTE | 2019-04-10 10:29 | UC ---
Abdominal Pain Female HPI - HPI Summary HPI Summary: 33-year-old female with a history of migraines who had a migraine on Wednesday which resolved the same day. Later Wednesday she had abdominal pain and cramping which preceded vomiting. The last time the patient vomited was 4 AM today. She is able to keep liquids down. She took a Zofran which she vomited. She continues to have the abdominal pain more in the right lower abdomen. - History of Current Complaint Chief Complaint: UCAbdominalPain Stated Complaint: ABD PAIN Time Seen by Provider: 04/10/19 10:09 Hx Obtained From: Patient Hx Last Menstrual Period: unknown ?: No Onset/Duration: Sudden Onset Timing: Constant Severity Initially: Moderate Severity Currently: Moderate Pain Intensity: 8 Location: Diffuse - Diffuse lower abdominal pain but mostly in the right lower quadrant. Radiates: No Character: Sharp Aggravating Factor(s): Movement Alleviating Factor(s): Nothing Associated Signs and Symptoms: Positive: Nausea, Vomiting. Negative: Vaginal Discharge - Risk Factors Ectopic Risk Factor: Tubal Ligation - Patient states she has had a tubal plug Allergies/Adverse Reactions: Allergies Allergy/AdvReac Type Severity Reaction Status Date / Time erythromycin base Allergy Hives Verified 04/10/19 09:37 ketorolac Allergy Hives Verified 04/10/19 09:37 levofloxacin Allergy Hives/Diff. Verified 04/10/19 09:37 Breathing/I tching onion Allergy Anaphylatic Verified 04/10/19 09:37 Shock prochlorperazine Allergy Hives Verified 04/10/19 09:37 sumatriptan [From Imitrex] Allergy Palpitation Verified 04/10/19 09:37 s Home Medications: Home Medications Pnv No.95/Ferrous Fum/Folic AC [ Caplet] 1 each PO DAILY 04/10/19 [ History Confirmed 04/10/19] PMH/Surg Hx/FS Hx/Imm Hx Previously Healthy: Yes Neurological History: Migraine Cancer History: Cervical Cancer Other History Of: Negative For: HIV, Hepatitis B, Hepatitis C - Surgical History Surgical History: Yes Surgery Procedure, Year, and Place: Uterine Ablation, 2013; Tubal Ligation, 2013 ; , 2007. Sinus surgery - Family History Known Family History: Positive: Cardiac Disease, Hypertension, Diabetes - Social History Lives: With Family Alcohol Use: None Substance Use Type: None Smoking Status (MU): Former Smoker Have You Smoked in the Last Year: No When Did the Patient Quit Smoking/Using Tobacco: 2012 - Immunization History Most Recent Influenza Vaccination: Not the Season Most Recent Tetanus Shot: 10/30/14 Review of Systems All Other Systems Reviewed And Are Negative: Yes Gastrointestinal: Positive: Abdominal Pain, Vomiting - Last time patient vomited was 4 AM today., Nausea Is Patient Immunocompromised?: No Physical Exam Triage Information Reviewed: Yes Appearance: Well-Appearing, No Pain Distress, Well-Nourished Vital Signs: Initial Vital Signs Temp 99 F 04/10/19 09:39 Pulse 71 04/10/19 09:39 Resp 15 04/10/19 09:39 BP 102/66 04/10/19 09:39 Pulse Ox 99 04/10/19 09:39 Vital Signs Reviewed: Yes Eyes: Positive: Conjunctiva Clear ENT: Positive: Hearing grossly normal, Pharynx normal, TMs normal, Uvula midline Neck: Positive: Supple, Nontender, No Lymphadenopathy Respiratory: Positive: Lungs clear, Normal breath sounds, No respiratory distress, No accessory muscle use Cardiovascular: Positive: RRR, No Murmur, Pulses Normal, Brisk Capillary Refill Abdomen Description: Positive: No Organomegaly, Soft, Guarding - Mild guarding of the right lower quadrant, McBurney's Point Tenderness - Patient has mild tenderness on palpation over her entire abdomen however worse on the right lower quadrant with rebound tenderness.. Negative: CVA Tenderness (R), CVA Tenderness (L), Distended, Hepatomegaly, Splenomegaly Bowel Sounds: Positive: Present Musculoskeletal Exam: Normal Neurological Exam: Normal Psychological Exam: Normal Skin Exam: Normal Abd Pain Female Course/Dx - Course Course Of Treatment: Urinalysis: Negative Urine hCG: Negative At this point in time because of the patient's increasing abdominal pain and tenderness in the right lower quadrant I feel she needs to be further evaluated in the emergency room for possible appendicitis. The patient is agreeable to this plan of action and she prefers to go by private car. I advised no eating or drinking between here and there. - Differential Dx/Diagnosis Provider Diagnosis: Abdominal pain Discharge ED - Sign-Out/Discharge Documenting (check all that apply): Patient Departure All imaging exams completed and their final reports reviewed: No Studies - Discharge Plan Condition: Fair Disposition: HOME Referrals: Justus Harrison MD [Primary Care Provider] - Additional Instructions: After the evaluation by the nurse practitioner, it is recommended that you go to the emergency room for further evaluation of the abdominal pain where you should receive additional testing that can be completed in the emergency department. It is recommended that you go directly to the emergency department. This evaluation may include blood work or imaging. This testing will be directed and decided by the provider that evaluates you within the emergency department. If pain becomes worse, you feel lightheaded or you develop uncontrolled vomiting, or have any other concerns while you are driving to the emergency room, please mold puller and call 911. - Billing Disposition and Condition Condition: FAIR Disposition: Home
== END 2019-04-10 10:45 | disposition home or self-care (01) ==
LOC: UCCORT 09:15
DX: R10.31 Right lower quadrant pain (principal); R10.32 Left lower quadrant pain; Z88.1 Allergy status to other antibiotic agents; Z88.5 Allergy status to narcotic agent; Z91.018 Allergy to other foods; Z88.8 Allergy status to other drugs, medicaments and biological substances; Z85.41 Personal history of malignant neoplasm of cervix uteri; Z87.891 Personal history of nicotine dependence
CPT/HCPCS: 81003; 84702; 99212; G0463